=== PATIENT | female | born 1975 | race Caucasian/White ===

== ENCOUNTER 2017-04-14 05:04 | Emergency (ER) | payer MEDICAID ==
[~2017-04-14] VITALS: Ht 175.3 cm; Wt 68.0 kg
[2017-04-14 05:05] VITALS: BP 128/84
[2017-04-14 05:55] LABS: Urine Bilirubin Negative (Negative); Urine Blood Negative /uL (Negative); Urine Color Yellow (Yellow); Urine Glucose Normal (Normal); Urine Ketone Negative (Negative); Urine Nitrite Negative (Negative); Urine RBC <1 /hpf (0 - 4); Urine Squamous Epithelial Cell FEW /hpf (<5); Urine Urobilinogen Normal (Negative); Urine pH 6.5 (5.0-8.0)
== END 2017-04-14 06:57 | disposition left against medical advice (07) ==
LOC: EDBD 05:04 → ER 05:05
DX: R10.13 Epigastric pain (principal); Z53.21 Procedure and treatment not carried out due to patient leaving prior to being seen by health care provider
CPT/HCPCS: 80307; 81001

== ENCOUNTER 2017-05-06 00:58 | Emergency (ER) | payer MEDICAID ==
[~2017-05-06] VITALS: Ht 175.3 cm; Wt 65.8 kg
[2017-05-06 01:49] LABS: Basophils # (auto) 0 uL; Basophils % (auto) 0.7 % (0.0-2.0); CONDITION Y; Eosinophils # (auto) 0.3 uL; Eosinophils % (auto) 5.6 % (0.0-7.0); Hematocrit 37.3 % (36.0-46.0); Hemoglobin 12.2 g/dL (12.2-16.2); Lymphocytes # (auto) 2.7 uL; Lymphocytes % (auto) 46.1 % (10.0-50.0); Mean Corpuscular Hemoglobin 28.5 pg (28.0-32.0); Mean Corpuscular Hgb Conc. 32.7 g/dL (32.0-36.0); Mean Corpuscular Volume 87.2 fL (80.0-100.0); Mean Platelet Volume 9.4 fL (7.4-10.4); Monocytes # (auto) 0.7 uL; Monocytes % (auto) 11.8 % (0.0-12.0); Neutrophils # (auto) 2.1 uL; Neutrophils % (auto) 35.8 % (37.0-80.0); Platelet Count (auto) 335 10^3/uL (140-450); Red Cell Distribution Width 15.7 % (11.6-16.0); White Blood Cell 5.9 10^3/uL (4.4-10.8)
[2017-05-06 01:57] LABS: Albumin 3.3 g/dL (3.4-5.0); Anion Gap 10 (5-15); Aspartate Aminotransferase 13 U/L (15-37); BUN/Creatinine Ratio 9.7; Blood Urea Nitrogen 9 mg/dL (7-18); Calcium 8.2 mg/dL (8.5-10.1); Carbon Dioxide 24 mmol/L (21-32); Chloride 109 mmol/L (98-107); GFR African American 85 mL/min; GFR Non-African American 70 mL/min; Glucose 97 mg/dL (74-106); Magnesium 2.3 mg/dL (1.6-2.6); Potassium 3.6 mmol/L (3.5-5.1); Sodium 143 mmol/L (136-145)
[2017-05-06 02:02] LABS: Alkaline Phosphatase 78 U/L (45-117); Bilirubin, Total 0.4 mg/dL (0.2-1.0)
[2017-05-06 02:23] LABS: B-Type Natriuretic Peptide 27.1 pg/mL (0-100); Temperature: 21.9 C (20.0-25.0)
[2017-05-06] MEDS ORDERED: SODIUM CHLORIDE 0.9% 1,000 ML IV ONE (04:00)
[2017-05-06 05:00] VITALS: BP 142/72
== END 2017-05-06 05:08 | disposition home or self-care (01) ==
LOC: ER 00:58 → EDBD 00:58 → ER 05:08
DX: R07.9 Chest pain, unspecified (principal); R06.02 Shortness of breath; F17.210 Nicotine dependence, cigarettes, uncomplicated; Z59.0 Homelessness; F15.10 Other stimulant abuse, uncomplicated; F12.10 Cannabis abuse, uncomplicated
CPT/HCPCS: 36415; 71010; 80053; 83735; 83880; 84484; 84702; 85025; 93005; 96360; 99285; J7030

== ENCOUNTER 2017-09-30 22:58 | Emergency (ER) | payer MEDICAID ==
[~2017-09-30] VITALS: Ht 170.2 cm; Wt 70.8 kg
[2017-10-01 03:30] VITALS: BP 159/83
[2017-10-01] MEDS ORDERED: LORazepam 0.5 MG TAB PO ONE (03:30)
== END 2017-10-01 03:47 | disposition home or self-care (01) ==
LOC: EDBD 22:58 → ER 23:08
DX: F41.9 Anxiety disorder, unspecified (principal); F32.9 Major depressive disorder, single episode, unspecified; F15.10 Other stimulant abuse, uncomplicated; F17.210 Nicotine dependence, cigarettes, uncomplicated; Z59.0 Homelessness

== ENCOUNTER 2024-11-27 10:54 | Emergency (ER) | payer MEDICAID ==
[~2024-11-27] VITALS: Ht 175.3 cm; Wt 70.9 kg
[2024-11-27 11:07] VITALS: RESP 20; O2SAT 97
--- NOTE | 2024-11-27 11:08 | ED.PDOC ---
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 EMS reports that the patient was found behind a business's dumpster and they had called 911 to check on the patient. EMS relays that the patient had shown flight of ideas and manic behavior, going from one topic or sentence to another. Patient states she has not had any food or drink for the past 36 hours. Patient notes she was recently discharged from [facility]. Patient reports that she does not use drugs, but drinks whiskey with her last drink being 2 days ago. Patient relays that she has been experiencing vaginal bleeding for the past 5 days. Patient unable to provider any further sarina ar history at this time. Patient denies any chest pain, SOB, headache, fever, chills, dizziness, or N/V/D. Initial Vital Signs: RR: 20 SpO2: 97% Patient denied all other vitals be taken. Past Medical History: PTSD Past Surgical History: Tonsillectomy Social History: Denies smoking or drug use. Heavy ETOH use. Medications: Past use of Lexapro Allergies: NKDA HPI: Poor Historian. REVIEW OF SYSTEMS: CONSTITUTIONAL: Denies acute: fever, diaphoresis, chills, generalized weakness. HEAD: Denies acute: headache, photophobia Eyes: Denies acute: Double vision, vision loss, eye pain, eye discharge. EARS: Denies acute: tinnitus, hearing loss, ear discharge, ear pain, THROAT: Denies acute: sore throat, swelling, difficulty swallowing , pain with swallowing, change in voice. NECK: Denies acute: neck pain, neck swelling, stiff neck. HEART: Denies acute : chest pain, palpitations, LUNGS: Denies acute: SOB, wheezing, cough, hemoptysis ABDOMEN: Denies acute: abdominal pain, Nausea, Vomiting, diarrhea, melena , hematemesis, hematochezia SKIN: Denies acute: rash, redness, lesions, itchiness. EXTREMITIES: Denies acute: calf pain, numbness, tingling, weakness, denies pain in extremity. Denies acute: Low back pain. Neuro: Denies acute: focal neurological deficit, motor or sensory focal neurological deficit, tremors, seizure like activity, confusion, dizziness, change in mental status, loss of bowel or bladder function, cauda equina like symptoms. : Denies acute: dysuria, hematuria, flank pain, increase in urinary frequency. PSYCH: Denies acute: hallucination, suicidal ideation, homicidal ideation. FEMALE: Denies acute: foul odor, unusual discharge. PHYSICAL EXAM: General: no acute distress, awake and alert. Head: normocephalic, atraumatic. Neck: supple, trachea is midline, no swelling. Throat: Normal phonation. Eyes:, no erythema, no purulent discharge, no proptosis, no icterus. Heart: regular rate, regular rhythm, no significant murmur appreciated. Lungs: no apparent respiratory distress, Able to speak in full sentences. No wheezing, no rhonchi, no crackles. No stridors Clear to auscultation bilaterally. Abdomen: non tender to palpation, non distended, soft, no guarding, no rebound, + bowel sounds. Neuro: Awake, Alert, oriented to name, self, situation, follows commands GCS=15. Speech is normal. Skin: no petechia, no purpura, no cyanosis, non-pale, not jaundice. Lower extremities: --no - Pitting edema no deformity, no focal swelling, no calf TTP. Makes eye contact. moves all four extremities. Face: no apparent facial droop. Ambulating in the ED independently. Patient appears to be having some psychosis. She is describing multiple events and multiple people in a bizarre way and can not stop talking. Patient is making was in multiple outlined in dish claims. Patient is accusing people of raping her. ED COURSE: Time Seen by MD: 11:02 Primary Care Provider: UNKNOWN Reviewed Notes: Medications, Allergies Information Source: Patient, Emergency Med Personnel Mode of Arrival: EMS Was a procedure done? Was a procedure done?: No Psych Differential Dx Psych. Differential Dx: Anxiety, Bipolar Disorder, Depression, Hopeless, No symptoms Reported, Panic Disorder, Schizoprenia, Sleepless, Suicidal OD Differential Dx: Conversion Disorder Intoxication Differential Dx: Delerium Tremens, Hallucinations, Drug-Induced Psychosis, Intoxication, Personality Disorder, Schizophrenia X-Ray, Labs, Meds, VS Vital Signs Date Time Temp Pulse Resp B/P (MAP) Pulse Ox O2 Delivery O2 Flow Rate FiO2 11/27/24 11:07 20 97 Lab Test 11/27/24 11:20 Range/Units White Blood Count 9.0 4.4-10.8 10^3/uL Red Blood Count 4.41 4.0-5.20 10^6/uL Hemoglobin 12.8 12.2-16.2 g/dL Hematocrit 39.4 36.0-46.0 % Mean Corpuscular Volume 89.4 80.0-100.0 fL Mean Corpuscular Hemoglobin 29.1 28.0-32.0 pg Mean Corpuscular Hemoglobin Concent 32.5 32.0-36.0 g/dL Red Cell Distribution Width 14.5 H 11.8-14.3 % Platelet Count 290 140-450 10^3/uL Mean Platelet Volume 8.8 6.9-10.8 fL Neutrophils (%) (Auto) 60.8 37.0-80.0 % Lymphocytes (%) (Auto) 27.0 10.0-50.0 % Monocytes (%) (Auto) 9.6 0.0-12.0 % Eosinophils (%) (Auto) 2.3 0.0-7.0 % Basophils (%) (Auto) 0.3 0.0-2.0 % Neutrophils # (Auto) 5.5 1.6-8.6 10 ^3/uL Lymphocytes # (Auto) 2.4 0.4-5.4 10 ^3/uL Monocytes # (Auto) 0.9 0-1.3 10 ^3/uL Eosinophils # (Auto) 0.2 0-0.8 10 ^3/uL Basophils # (Auto) 0 0-0.2 10 ^3/uL Nucleated Red Blood Cells 0.1 % Sodium Level 139 136-145 mmol/L Potassium Level 3.5 3.5-5.1 mmol/L Chloride Level 104 98-107 mmol/L Carbon Dioxide Level 27 20-31 mmol/L Anion Gap 8 5-15 Blood Urea Nitrogen 15 9-23 mg/dL Creatinine 0.93 0.550-1.02 mg/dL Glomerular Filtration Rate Calc 74 >90 mL/min BUN/Creatinine Ratio 16.1 10.0-20.0 Serum Glucose 131 H 74-106 mg/dL Lactic Acid Level 1.9 0.4-2.0 mmol/L Calcium Level 10.3 8.7-10.4 mg/dL Magnesium Level 2.2 1.6-2.6 mg/dL Total Bilirubin 0.8 0.2-1.0 mg/dL Aspartate Amino Transferase (AST) 21 13-40 U/L Alanine Aminotransferase (ALT) 23 7-40 U/L Alkaline Phosphatase 78 46-116 U/L Creatine Kinase 295 H 34-145 U/L Troponin I High Sensitivity < 3 L </=34 ng/L Total Protein 7.9 5.7-8.2 g/dL Albumin 4.9 H 3.2-4.8 g/dL Plasma/Serum Blood Alcohol < 3.0 <10 mg/dL Current Medications Medications (Trade) Dose Ordered Sig/Gene Route Start Time Stop Time Status Last Admin Lorazepam (Ativan Inj) 1 mg ONCE ONCE IM 11/27/24 11:15 11/27/24 11:16 DC 11/27/24 11:20 Time of 1ST Reevaluation: 12:02 Reevaluation 1ST: Unchanged Patient Education/Counseling: Diagnosis, Treatment Family Education/Counseling: No Family Present Comments I was notified by the staff that the patient eloped. She refused pelvic ultrasound for evaluation of vaginal bleed. She refused multiple interventions. Departure 1 Departure Time of Disposition: 17:27 Impression: Primary Impression: Patient needs psychiatric hold for evaluation Disposition: LEFT AWOL/ELOPED Condition: Guarded Discharged With: Self Critical Care Note Critical Care Time?: No I personally scribed for MARLENY RIOJAS DO ([email or web address]) on 11/27/24 at 11:07. Electronically submitted by Yong Kamara ([email or web address]). I personally scribed for MARLENY RIOJAS DO ([email or web address]) on 11/27/24 at 13:05. Electronically submitted by Yong Kamara ([email or web address]). MARLENY RIOJAS DO Nov 27, 2024 11:07
[2024-11-27] MEDS: LORazepam 2MG/ML-1ML VIAL IM ONE (11:20)
[2024-11-27] MEDS: LORazepam 2MG/ML-1ML VIAL ONE (11:32)
[2024-11-27 11:38] LABS: Basophils # (auto) 0 10 ^3/uL (0-0.2); Basophils % (auto) 0.3 % (0.0-2.0); Eosinophils # (auto) 0.2 10 ^3/uL (0-0.8); Eosinophils % (auto) 2.3 % (0.0-7.0); Hematocrit 39.4 % (36.0-46.0); Hemoglobin 12.8 g/dL (12.2-16.2); Lymphocytes # (auto) 2.4 10 ^3/uL (0.4-5.4); Mean Corpuscular Hemoglobin 29.1 pg (28.0-32.0); Mean Corpuscular Hgb Conc. 32.5 g/dL (32.0-36.0); Mean Corpuscular Volume 89.4 fL (80.0-100.0); Monocytes # (auto) 0.9 10 ^3/uL (0-1.3); Monocytes % (auto) 9.6 % (0.0-12.0); Neutrophils # (auto) 5.5 10 ^3/uL (1.6-8.6); Neutrophils % (auto) 60.8 % (37.0-80.0); Nucleated Red Blood Cells % 0.1 %; Platelet Count (auto) 290 10^3/uL (140-450); Red Blood Cells 4.41 10^6/uL (4.0-5.20); Red Cell Distribution Width 14.5 % (11.8-14.3)
[2024-11-27 11:55] LABS: Alanine Aminotransferase 23 U/L (7-40); Alkaline Phosphatase 78 U/L (46-116); Anion Gap 8 (5-15); Aspartate Aminotransferase 21 U/L (13-40); BUN/Creatinine Ratio 16.1 (10.0-20.0); Bilirubin, Total 0.8 mg/dL (0.2-1.0); Blood Urea Nitrogen 15 mg/dL (9-23); Calcium 10.3 mg/dL (8.7-10.4); Carbon Dioxide 27 mmol/L (20-31); Chloride 104 mmol/L (98-107); Magnesium 2.2 mg/dL (1.6-2.6); Sodium 139 mmol/L (136-145); Total Protein 7.9 g/dL (5.7-8.2)
[2024-11-27 11:56] LABS: Albumin 4.9 g/dL (3.2-4.8); Blood Alcohol < 3.0 mg/dL (<10); Creatine Kinase IFCC 295 U/L (34-145); Glucose 131 mg/dL (74-106); Potassium 3.5 mmol/L (3.5-5.1)
[2024-11-27] MEDS ORDERED: LORazepam 2MG/ML-1ML VIAL IM ONE (15:45)
[2024-11-27] MEDS ORDERED: diphenhdrAMINE HCL 50 MG/1 ML VL IM ONE (15:45)
== END 2024-11-27 17:27 | disposition left against medical advice (07) ==
LOC: EDBD 10:54 → ER 10:54
DX: N93.9 Abnormal uterine and vaginal bleeding, unspecified (principal); Z04.6 Encounter for general psychiatric examination, requested by authority; Z90.89 Acquired absence of other organs; Z79.899 Other long term (current) drug therapy
CPT/HCPCS: 36415; 80053; 80320; 82550; 83605; 83735; 84484; 85025; 96372; 99283; J2060